=== PATIENT | male | born 1955 | race Caucasian/White ===

== ENCOUNTER 2016-07-27 20:49 | Emergency (ER) | payer OTHER ==
[2016-07-27 21:24] LABS: BASOPHIL 0.2 % (0-2); EOSINOPHIL 1.7 % (0-5); HCT 48.1 % (42.0-52.0); HGB 16.7 g/dl (13.2-18.0); LYMPHOCYTE 23.3 % (15-48); MCH 33.2 pg (25.0-31.0); MCHC 34.7 g/dL (32.0-36.0); MCV 95.6 fL (78.0-100.0); MONOCYTE 10.1 % (0-12); MPV 10.6 fL (6.0-9.5); NEUTROPHIL 64.7 % (41-80); PLT 210 K/uL (150-400); RBC 5.03 M/uL (4.70-6.00); RDW 14.9 % (11.5-14.0); WBC 8.6 K/uL (4.0-10.5)
[2016-07-27 21:34] LABS: INR 0.91 (0.9-1.2); PROTHROMBIN TIME 11.9 SECONDS (11.7-14.0); PTT 26.2 SECONDS (23.2-31.4)
[2016-07-27 21:43] LABS: ALBUMIN 3.9 g/dL (3.5-5.0); BILIRUBIN - TOTAL 0.4 mg/dL (0.1-1.0); CREATININE 1.1 mg/dL (0.7-1.2); GLOBULIN (CALCULATION) 2.3 g/dL (2.2-4.2); POTASSIUM 4.9 mmol/L (3.5-5.1); TOTAL PROTEIN 6.2 g/dL (6.4-8.3)
[2016-07-27 21:44] LABS: MAGNESIUM 1.93 mg/dL (1.40-2.10)
[2016-07-27 21:53] LABS: CKMB 2.55 ng/mL (0.97-4.94); TROPONIN T 0.04 ng/mL
== END 2016-07-28 02:10 | disposition other institution (70) ==
LOC: FER 20:49
PROVIDERS: Emergency Medicine Emergency Medical Services
DX: I21.4 Non-ST elevation (NSTEMI) myocardial infarction (principal); I10 Essential (primary) hypertension; E78.5 Hyperlipidemia, unspecified; F17.210 Nicotine dependence, cigarettes, uncomplicated; Z79.82 Long term (current) use of aspirin; Z79.899 Other long term (current) drug therapy
CPT/HCPCS: 36415; 71010; 80053; 82550; 82553; 83690; 83735; 83874; 83880; 84484; 85025; 85610; 85730; 93005; 96374; J1644

== ENCOUNTER → 2021-05-05 | Day surgery (SDC) | payer OTHER ==
[~2021-05-05] VITALS: Ht 177.8 cm; Wt 104.3 kg
[~2021-05-05] MED LIST: ASPIRIN EC81 MG PO; COZAAR100 MG PO; LASIX80 MG PO; LOPRESSOR25 MG PO; LOVAZA1 GM PO; NITROQUIK SL0.4 MG SL; REPATHA SU140 MG/1 M IJ; TRAMADOL HCL50 MG PO; VITAMIN D31250 MCG PO
[2021-05-05 13:17] LABS: HCT 43.5 % (42.0-52.0); MCH 32.6 pg (25.0-31.0); MCHC 34.5 g/dL (32.0-36.0); MCV 94.6 fL (78.0-100.0); MPV 9.9 fL (6.0-9.5); RBC 4.6 M/uL (4.70-6.00); RDW 13.3 % (11.5-14.0); WBC 5.7 K/uL (4.0-10.5)
[2021-05-05 13:36] LABS: ALBUMIN 3.5 g/dL (3.4-5.0); BILIRUBIN - TOTAL 1.2 mg/dL (0.2-1.0); BUN/CREAT RATIO (CALC) 16.3 RATIO; CREATININE 0.98 mg/dL (0.67-1.17); GLOBULIN (CALCULATION) 3.2 g/dL; POTASSIUM 4.3 mmol/L (3.5-5.1); TOTAL PROTEIN 6.7 g/dL (6.4-8.2)
== END | disposition home or self-care (01) ==
LOC: FAS 12:33
PROVIDERS: Orthopaedic Surgery
DX: S83.241A Other tear of medial meniscus, current injury, right knee, initial encounter (principal); M67.51 Plica syndrome, right knee; M25.861 Other specified joint disorders, right knee; M17.11 Unilateral primary osteoarthritis, right knee; S83.411A Sprain of medial collateral ligament of right knee, initial encounter; X58.XXXA Exposure to other specified factors, initial encounter; Y92.9 Unspecified place or not applicable
CPT/HCPCS: 36415; 71045; 80053; J2250; J7120